=== PATIENT | male | born 1990 ===

== ENCOUNTER 2019-03-14 05:21 | Emergency (ER) | payer SELFPAY ==
[2019-03-14] MEDS: SODIUM CHLORIDE 0.9% 500 ML 500 ML IV ONE ×2 (05:21)
[2019-03-14] MEDS ORDERED: LIDOCAINE 1% W/EPI MPF 30 ML SOL ONE (06:03)
[2019-03-14] MEDS ORDERED: BACITRACIN 500 U/GM OIN TOP ONE (06:03)
[2019-03-14] MEDS ORDERED: TDAP VACCINE 0.5 ML SUS IM ONE (06:03)
[2019-03-14] MEDS ORDERED: KETOROLAC TROMETHAMINE 30 MG/ML SOL ONE (06:03)
[2019-03-14 06:08] LABS: BASOPHILS % (AUTO) 1 % (0-3); EOSINOPHILS % (AUTO) 2 % (0-9); HEMATOCRIT 45 % (39-53); HEMOGLOBIN 15.1 gm/dl (13.5-17.7); LYMPHOCYTES % (AUTO) 14.2 % (10-50); MEAN CORPUSCULAR HEMOGLOBIN 30.7 pg (27.0-32.0); MEAN CORPUSCULAR HGB CONC 33.5 gm/dl (32.0-36.0); MEAN CORPUSCULAR VOLUME 92 fL (80-100); MONOCYTES % (AUTO) 6.5 % (0-12); NEUTROPHILS % (AUTO) 76.8 % (37-80)
[2019-03-14] MEDS: SODIUM CHLORIDE 0.9% 1000ML 1,000 ML IV ONE ×2 (06:08→06:17)
[2019-03-14] MEDS: KETOROLAC TROMETHAMINE 30 MG/ML SOL IV ONE (06:13)
[2019-03-14] MEDS: TDAP VACCINE 0.5 ML SUS IM ONE (06:17)
[2019-03-14 06:25] LABS: ALBUMIN 3.8 gm/dl (3.4-5.0); BILIRUBIN,TOTAL 0.3 mg/dl (0.2-1.0); CALCIUM 8.5 mg/dl (8.5-10.1); CARBON DIOXIDE 22.8 mEq/L (21-32); CREATININE 0.86 mg/dl (0.80-1.30); POTASSIUM 3.7 mMol/L (3.5-5.1); TOTAL PROTEIN 6.6 gm/dl (6.4-8.2)
[2019-03-14 06:26] LABS: ALCOHOL 0.149 gm/dl (0.000-0.08)
[2019-03-14 06:51] LABS: AMPHETAMINES NEGATIVE (NEGATIVE); BARBITUATES NEGATIVE (NEGATIVE); BENZODIAZEPINES NEGATIVE (NEGATIVE); CANNABINOL(THC) NEGATIVE (NEGATIVE); COCAINE(COC) NEGATIVE (NEGATIVE); METHADONE NEGATIVE (NEGATIVE); METHAMPHETAMINES POSITIVE (NEGATIVE); OPIATES(OPI) NEGATIVE (NEGATIVE); OXYCODONE(OXY) NEGATIVE (NEGATIVE); PROPOXYPHENE(PPX) NEGATIVE (NEGATIVE); TRICYCLIC ANTIDEPRESSANTS NEGATIVE (NEGATIVE)
[2019-03-14 07:14] VITALS: TEMP 98.4
[2019-03-14 08:26] VITALS: O2SAT 100
[2019-03-14 09:01] VITALS: RESP 16
[2019-03-14] MEDS: LIDOCAINE 1% W/EPI MPF 30 ML SOL INFIL ONE (09:45)
[2019-03-14] MEDS: BACITRACIN 500 U/GM OIN TOP ONE (10:00)
[2019-03-14 10:57] VITALS: BP 114/65; PULSE 93
== END 2019-03-14 10:30 | disposition home or self-care (01) | DRG 605 ==
LOC: ED 05:21
DX: S41.112A Laceration without foreign body of left upper arm, initial encounter (principal); X99.1XXA Assault by knife, initial encounter; R40.2362 Coma scale, best motor response, obeys commands, at arrival to emergency department; R40.2142 Coma scale, eyes open, spontaneous, at arrival to emergency department; R40.2252 Coma scale, best verbal response, oriented, at arrival to emergency department; Y90.6 Blood alcohol level of 120-199 mg/100 ml
CPT/HCPCS: 12002; 36415; 73200; 80053; 80305; 80307; 85025; 90471; 90715; 96365; 96366; 96374; 99285; G0390; J1885; A6402; A9270-GY

== ENCOUNTER 2019-06-01 00:35 | Inpatient (IN) | payer SELFPAY ==
[2019-06-01] MEDS ORDERED: SODIUM CHLORIDE 0.9% 1000ML 1,000 ML IV ONE (01:01)
[2019-06-01] MEDS ORDERED: LORAZEPAM 2 MG/ML 10ML MDV 2 MG/ML VIAL IV PRN ×2 (01:02→02:02)
[2019-06-01 01:04] LABS: BASOPHILS % (AUTO) 1 % (0-3); EOSINOPHILS % (AUTO) 1 % (0-9); HEMATOCRIT 47 % (39-53); HEMOGLOBIN 15.6 gm/dl (13.5-17.7); LYMPHOCYTES % (AUTO) 11.7 % (10-50); MEAN CORPUSCULAR HEMOGLOBIN 30.3 pg (27.0-32.0); MEAN CORPUSCULAR HGB CONC 33.4 gm/dl (32.0-36.0); MEAN CORPUSCULAR VOLUME 91 fL (80-100); MONOCYTES % (AUTO) 8.7 % (0-12); NEUTROPHILS % (AUTO) 77.8 % (37-80)
[2019-06-01] MEDS ORDERED: LORAZEPAM 2 MG/ML SOL ONE (01:14)
[2019-06-01] MEDS: SODIUM CHLORIDE 0.9% FLUSH 10 ML SOL IV PRN ×2 (01:19→18:31)
[2019-06-01 01:27] LABS: ALKALINE PHOSPHATASE 75 IU/L (46-116); ALT 73 IU/L (14-63); AST 42 IU/L (15-37); BILIRUBIN,TOTAL 0.5 mg/dl (0.2-1.0); BLOOD UREA NITROGEN 12 mg/dl (7-18); CALCIUM 8.8 mg/dl (8.5-10.1); CARBON DIOXIDE 29.8 mEq/L (21-32); CHLORIDE 104 mMol/L (98-107); CREATININE 0.82 mg/dl (0.80-1.30); GLUCOSE 82 mg/dl (74-106); SODIUM 140 mMol/L (136-145); THYROID STIMULATING HORMONE 1.334 uIU/ml (0.358-3.740); TOTAL PROTEIN 7.2 gm/dl (6.4-8.2); TROP I < 0.017 ng/ml (0.000-0.056)
[2019-06-01 01:29] LABS: ALCOHOL 0.005 gm/dl (0.000-0.08)
[2019-06-01 01:37] LABS: AMPHETAMINES POSITIVE (NEGATIVE); BARBITUATES NEGATIVE (NEGATIVE); BENZODIAZEPINES NEGATIVE (NEGATIVE); CANNABINOL(THC) NEGATIVE (NEGATIVE); COCAINE(COC) NEGATIVE (NEGATIVE); METHAMPHETAMINES POSITIVE (NEGATIVE); OPIATES(OPI) NEGATIVE (NEGATIVE); OXYCODONE(OXY) NEGATIVE (NEGATIVE); PROPOXYPHENE(PPX) NEGATIVE (NEGATIVE)
[2019-06-01] MEDS ORDERED: SODIUM CHLORIDE 0.9% 1000ML 1,000 ML IV SCH ×2 (02:15→11:00)
[2019-06-01] MEDS ORDERED: NICOTINE 7 MG PATCH TD SCH (20:00)
[2019-06-01 20:07] VITALS: RESP 18
[2019-06-01 22:43] VITALS: BP 123/78; PULSE 86; O2SAT 99
[2019-06-01 23:36] VITALS: TEMP 97.9
== END 2019-06-01 23:15 | disposition home or self-care (01) | DRG 897 ==
LOC: ED 00:35 → ACUTE CARE 01:52
PROVIDERS: ADMIT Family Medicine; ATTEND Family Medicine
DX: F15.20 Other stimulant dependence, uncomplicated (principal); Z02.89 Encounter for other administrative examinations; F12.90 Cannabis use, unspecified, uncomplicated
CPT/HCPCS: 80053; 80305; 80307; 84443; 84484; 85025; 93005; 93012; 96365; 96374; 99236; 99285; J2060; A9270-GY